=== PATIENT | female | born 1945 | race Caucasian/White ===

== ENCOUNTER 2017-09-05 14:17 | Inpatient (IN) | payer MEDICARE, OTHER ==
[~2017-09-05] VITALS: Ht 160 cm; Wt 58.8 kg
[2017-09-05 14:43] LABS: BASOPHILS # (AUTO) 0.06 x10^3/uL (0-0.1); BASOPHILS % (AUTO) 1 % (0-1); EOSINOPHILS # (AUTO) 0.07 x10^3/uL (0-0.4); EOSINOPHILS % (AUTO) 1 % (1-7); LYMPHOCYTES # (AUTO) 1.48 x10^3/uL (1-3.4); LYMPHOCYTES % (AUTO) 21 % (22-44); MD NO; MEAN CORPUSCULAR HEMOGLOBIN 30.4 pg (27.0-34.8); MEAN CORPUSCULAR HGB CONC 33.2 g/dL (32.4-35.8); MEAN CORPUSCULAR VOLUME 91.7 fL (80-100); MEAN PLATELET VOLUME 8.3 fL (7.4-10.4); MONOCYTES # (AUTO) 0.59 x10^3/uL (0.2-0.8); MONOCYTES % (AUTO) 9 % (2-9); NEUTROPHILS # (AUTO) 4.78 x10^3/uL (1.8-6.8); NEUTROPHILS % (AUTO) 69 % (42-75); PLATELET COUNT 256 x10^3/uL (130-400); RED BLOOD COUNT 4.78 x10^6/uL (3.82-5.3)
[2017-09-05] MEDS ORDERED: ASPI-496 PO (14:56)
[2017-09-05] MEDS ORDERED: CALC1TAB84 PO (14:56)
[2017-09-05 15:00] LABS: PROTHROMBIN TIME 10.4 Seconds (9.6-11.5)
[2017-09-05] MEDS ORDERED: LEVO88TA4 PO (15:02)
[2017-09-05] MEDS ORDERED: ATOR-2 PO (15:02)
[2017-09-05] MEDS ORDERED: AMLO10TA2 PO (15:02)
[2017-09-05] MEDS ORDERED: EXEM25TA2 PO (15:02)
[2017-09-05] MEDS ORDERED: HYDR12.53 PO (15:02)
[2017-09-05] MEDS ORDERED: NITROGLYCERIN 5 MG/ML, 10ML ONE (15:15)
[2017-09-05] MEDS ORDERED: FENTANYL PF 100 MCG/2ML ONE (15:15)
[2017-09-05] MEDS ORDERED: TICAGRELOR 90 MG TABLET ONE (15:15)
[2017-09-05] MEDS ORDERED: VERAPAMIL 2.5 MG/ML, 2ML ONE (15:15)
[2017-09-05] MEDS ORDERED: MIDAZOLAM 1 MG/ML, 5ML ONE (15:15)
[2017-09-05] MEDS ORDERED: BIVALIRUDIN 250 MG ONE (15:15)
[2017-09-05] MEDS ORDERED: HEPARIN 1,000 UNITS/ML, 10ML ONE (15:16)
[2017-09-05] MEDS ORDERED: LIDOCAINE/PF 1%, 30ML ONE (15:16)
[2017-09-05 16:38] VITALS: BP 91/61
[2017-09-05 16:50] VITALS: BP 97/69
[2017-09-05] MEDS ORDERED: ONDANSETRON ODT 4 MG PO PRN (17:30)
[2017-09-05] MEDS ORDERED: morphine SULFATE 10 MG/ML, 1ML IVPush PRN (17:30)
[2017-09-05] MEDS ORDERED: ONDANSETRON 2MG/ML, 2ML IVPush PRN (17:30)
[2017-09-05] MEDS ORDERED: POLYETHYLENE GLYCOL 17 GM PACKET PO PRN (17:30)
[2017-09-05] MEDS ORDERED: LABETALOL 5MG/ML, 20ML IVPush PRN (17:30)
[2017-09-05] MEDS ORDERED: HEPARIN 25,000 UNITS/500ML PMX 500 ML IV PRN ×2 (17:30→18:00)
[2017-09-05] MEDS ORDERED: HEPARIN 25,000 UNITS/500ML PMX 500 ML ONE (17:50)
[2017-09-05] MEDS: SODIUM CHLORIDE 0.9% 1,000 ML IV SCH (17:52)
[2017-09-05 18:00] LABS: CHOL/HDL RATIO 1.8; LDL/HDL RATIO 0.7 (0.5-3.0)
[2017-09-05] MEDS ORDERED: HEPARIN wt. based STROKE protocol MC PRN (18:00)
[2017-09-05] MEDS ORDERED: HEPARIN 5,000 UNITS/ML, 1ML IV PRN (18:00)
[2017-09-05] MEDS ORDERED: PNEUMOCOCCAL 23 VACCINE IM-VACC ONE (18:30)
[2017-09-05 18:48] VITALS: BP 94/59
[2017-09-05 20:55] VITALS: BP 94/60
[2017-09-05] MEDS ORDERED: ATORVASTATIN 40 MG TABLET PO SCH (21:00)
[2017-09-05] MEDS ORDERED: ATORVASTATIN 80 MG TABLET PO SCH (21:00)
[2017-09-06] VITALS (8 sets, daily range): BP systolic 91–106; BP diastolic 58–73
[2017-09-06] MEDS ORDERED: NITROGLYCERIN SINGLE TAB 0.4 MG SL ONE (01:30)
[2017-09-06] MEDS ORDERED: NITROGLYCERIN 0.4 MG BOTTLE (25 TABS) SL ONE (01:42)
[2017-09-06] MEDS ORDERED: HEPARIN 25,000 UNITS/500ML PMX 500 ML IV PRN (02:00)
[2017-09-06] MEDS: HEPARIN 5,000 UNITS/ML, 1ML IV PRN ×3 (02:00→21:21)
[2017-09-06] MEDS: ASPIRIN 81 MG TABLET EC PO SCH (05:20)
[2017-09-06 05:54] LABS: CHLORIDE 109 mmol/L (98-107)
[2017-09-06 05:56] LABS: BASOPHILS # (AUTO) 0.04 x10^3/uL (0-0.1); BASOPHILS % (AUTO) 1 % (0-1); EOSINOPHILS % (AUTO) 2 % (1-7); LYMPHOCYTES # (AUTO) 1.28 x10^3/uL (1-3.4); LYMPHOCYTES % (AUTO) 18 % (22-44); MD NO; MEAN CORPUSCULAR HEMOGLOBIN 30.7 pg (27.0-34.8); MEAN CORPUSCULAR HGB CONC 33.4 g/dL (32.4-35.8); MEAN CORPUSCULAR VOLUME 92.2 fL (80-100); MEAN PLATELET VOLUME 8.1 fL (7.4-10.4); MONOCYTES % (AUTO) 7 % (2-9); NEUTROPHILS # (AUTO) 5.21 x10^3/uL (1.8-6.8); NEUTROPHILS % (AUTO) 73 % (42-75); PLATELET COUNT 210 x10^3/uL (130-400); RED BLOOD COUNT 4.38 x10^6/uL (3.82-5.3); RED CELL DISTRIBUTION WIDTH 14.3 % (9.6-15.2)
[2017-09-06 06:01] LABS: ALANINE AMINOTRANSFERASE 23 U/L (12-78); ALBUMIN 3.2 g/dL (3.4-5.0); ALKALINE PHOSPHATASE 71 U/L (45-117); ANION GAP 6 mmol/L (5-15); BILIRUBIN,TOTAL 0.7 mg/dL (0.2-1.0); CALCIUM 8.3 mg/dL (8.5-10.1); CREATININE 0.66 mg/dL (0.55-1.02); TOTAL PROTEIN 6.1 g/dL (6.4-8.2)
[2017-09-06] MEDS: EXEMESTANE 25 MG PO SCH (08:17)
[2017-09-06] MEDS: SENNA/DOCUSATE TABLET PO SCH (08:17)
[2017-09-06] MEDS: LEVOTHYROXINE 88 MCG TABLET PO SCH (08:17)
[2017-09-06] MEDS ORDERED: TEMPLATE NON-FORMULARY MED. (Aspirin** (Aspir 81**) 81 MG) PO SCH (09:00)
[2017-09-06] MEDS ORDERED: POTASSIUM CHLORIDE 20 MEQ PACKET PO ONE (11:30)
[2017-09-06] MEDS: SODIUM CHLORIDE 0.9% 1,000 ML IV SCH (13:37)
[2017-09-06] MEDS: ATORVASTATIN 40 MG TABLET PO SCH (21:21)
[2017-09-07 02:55] VITALS: BP 114/80
[2017-09-07] MEDS: ASPIRIN 81 MG TABLET EC PO SCH (05:58)
[2017-09-07 06:55] VITALS: BP_SYST 117
[2017-09-07] MEDS: EXEMESTANE 25 MG PO SCH (09:00)
[2017-09-07] MEDS: SENNA/DOCUSATE TABLET PO SCH (09:00)
[2017-09-07] MEDS: SODIUM CHLORIDE 0.9% 1,000 ML IV SCH ×2 (09:30→22:10)
[2017-09-07] MEDS: LEVOTHYROXINE 88 MCG TABLET PO SCH (09:39)
[2017-09-07] MEDS ORDERED: LIDOCAINE 2% VISCOUS, 100ML MM PRN (11:30)
[2017-09-07] MEDS ORDERED: BENZOCAINE AEROSOL SPRAY 20%, 60ML TP PRN (11:30)
[2017-09-07] MEDS ORDERED: SODIUM CHLORIDE 0.9% 1,000 ML IV ONE (11:30)
[2017-09-07 14:00] VITALS: BP 132/90
[2017-09-07] MEDS: HEPARIN 5,000 UNITS/ML, 1ML SQ SCH (14:31)
[2017-09-07] MEDS: METOPROLOL TARTRATE 25 MG TABLET PO SCH (17:53)
[2017-09-07] MEDS: ATORVASTATIN 40 MG TABLET PO SCH (20:19)
[2017-09-07 21:24] VITALS: BP 122/82
[2017-09-08 00:37] VITALS: BP 132/81
[2017-09-08] MEDS: HEPARIN 5,000 UNITS/ML, 1ML SQ SCH ×2 (01:12→13:30)
[2017-09-08] MEDS: ASPIRIN 81 MG TABLET EC PO SCH (05:05)
[2017-09-08 05:08] VITALS: BP 134/90
[2017-09-08] MEDS: METOPROLOL TARTRATE 25 MG TABLET PO SCH ×2 (05:10→17:52)
[2017-09-08 05:29] LABS: BASOPHILS # (AUTO) 0.03 x10^3/uL (0-0.1); BASOPHILS % (AUTO) 1 % (0-1); EOSINOPHILS # (AUTO) 0.13 x10^3/uL (0-0.4); EOSINOPHILS % (AUTO) 3 % (1-7); LYMPHOCYTES # (AUTO) 1.77 x10^3/uL (1-3.4); LYMPHOCYTES % (AUTO) 35 % (22-44); MD NO; MEAN CORPUSCULAR HEMOGLOBIN 30.7 pg (27.0-34.8); MEAN CORPUSCULAR HGB CONC 33.5 g/dL (32.4-35.8); MEAN CORPUSCULAR VOLUME 91.8 fL (80-100); MEAN PLATELET VOLUME 8.3 fL (7.4-10.4); MONOCYTES # (AUTO) 0.45 x10^3/uL (0.2-0.8); MONOCYTES % (AUTO) 9 % (2-9); NEUTROPHILS # (AUTO) 2.61 x10^3/uL (1.8-6.8); NEUTROPHILS % (AUTO) 52 % (42-75); PLATELET COUNT 216 x10^3/uL (130-400); RED BLOOD COUNT 4.42 x10^6/uL (3.82-5.3); RED CELL DISTRIBUTION WIDTH 14.5 % (9.6-15.2)
[2017-09-08 05:34] LABS: CHLORIDE 113 mmol/L (98-107)
[2017-09-08 05:56] LABS: ANION GAP 8 mmol/L (5-15); CALCIUM 9.1 mg/dL (8.5-10.1); CREATININE 0.77 mg/dL (0.55-1.02)
[2017-09-08 07:49] VITALS: BP 117/82
[2017-09-08] MEDS ORDERED: LISINOPRIL 5 MG TABLET PO SCH (09:00)
[2017-09-08] MEDS: SENNA/DOCUSATE TABLET PO SCH (09:00)
[2017-09-08] MEDS: EXEMESTANE 25 MG PO SCH (09:00)
[2017-09-08] MEDS ORDERED: PROPOFOL 10 MG/ML, 20ML ONE (09:13)
[2017-09-08] MEDS: LEVOTHYROXINE 88 MCG TABLET PO SCH (10:16)
[2017-09-08 13:06] VITALS: BP 99/64
[2017-09-08] MEDS: SODIUM CHLORIDE 0.9% 1,000 ML IV SCH (17:47)
[2017-09-08] MEDS ORDERED: LISI5TAB7 PO (19:46)
[2017-09-08] MEDS ORDERED: METO25TA35 PO (19:46)
[2017-09-08] MEDS ORDERED: NITR0.4T SL ×2 (19:57→19:59)
== END 2017-09-08 21:23 | disposition home or self-care (01) | DRG 281 ==
LOC: ED 14:58 → EDIP 14:59 → ED 15:19 → 5SO 16:23
PROVIDERS: ADMIT Hospitalist; ATTEND Hospitalist
PROC: 4A023N7 Measurement of Cardiac Sampling and Pressure, Left Heart, Percutaneous Approach (ICD-10-PCS; principal; 2017-09-05)
PROC: B2111ZZ Fluoroscopy of Multiple Coronary Arteries using Low Osmolar Contrast (ICD-10-PCS; 2017-09-05)
PROC: B2151ZZ Fluoroscopy of Left Heart using Low Osmolar Contrast (ICD-10-PCS; 2017-09-05)
DX: I21.4 Non-ST elevation (NSTEMI) myocardial infarction (principal); E44.1 Mild protein-calorie malnutrition; I10 Essential (primary) hypertension; E78.5 Hyperlipidemia, unspecified; E03.9 Hypothyroidism, unspecified; X58.XXXA Exposure to other specified factors, initial encounter; G56.00 Carpal tunnel syndrome, unspecified upper limb; Y92.312 Tennis court as the place of occurrence of the external cause; I34.0 Nonrheumatic mitral (valve) insufficiency; Y93.73 Activity, racquet and hand sports; Z66 Do not resuscitate; Z85.3 Personal history of malignant neoplasm of breast; Z92.3 Personal history of irradiation; Z96.659 Presence of unspecified artificial knee joint; Z87.891 Personal history of nicotine dependence
CPT/HCPCS: 36415; 71045; 80047; 80048; 80053; 80061; 84439; 84443; 84484; 85025; 85520; 85610; 85730; 90732; 93005; 93306; 93312; 93325; 93458; 99156; 99285; C1769; C1894; J0583; J1644; J2250; J2704; J3010; J3490; J7030; Q9967

== ENCOUNTER → 2017-10-23 | Outpatient (CLI) | payer MEDICARE ==
[~2017-10-23] MED LIST: AMLO10TA2 PO; ASPI-496 PO; ATOR-2 PO; CALC1TAB84 PO; EXEM25TA2 PO; HYDR12.53 PO; LEVO88TA4 PO; LISI5TAB7 PO; METO25TA35 PO; NITR0.4T SL
== END | disposition home or self-care (01) ==
LOC: CVU 14:06
PROVIDERS: ATTEND Internal Medicine Cardiovascular Disease
DX: I07.1 Rheumatic tricuspid insufficiency (principal); I34.0 Nonrheumatic mitral (valve) insufficiency; I10 Essential (primary) hypertension; E78.5 Hyperlipidemia, unspecified; I25.2 Old myocardial infarction; Z85.3 Personal history of malignant neoplasm of breast
CPT/HCPCS: 93306